=== PATIENT | female | born 1970 | race Caucasian/White ===

== ENCOUNTER → 2016-10-11 | Outpatient (CLI) | payer OTHER ==
[~2016-10-11] MED LIST: ADVAIR 100-501 EACH INH; FLEXERIL PO; IBUPROFEN 800800 M1 PO; IBUPROFEN 800800 MG PO; METFORMIN HCL500 MG PO; MULTIVITAMINS1 EAC7 PO; NORCO 5-325 TA1 EACH PO; PHENERGAN 25 MG25 M1 PO; SENOKOT-S1 TA1 PO; WELLBUTRIN 100100 MG PO; XOPENEX0.31 MG/3 IH
== END ==
LOC: ULTRA 15:52
DX: M79.662 Pain in left lower leg (principal); M79.89 Other specified soft tissue disorders; R60.0 Localized edema

== ENCOUNTER 2018-10-13 09:25 | Inpatient (IN) | payer BC ==
[~2018-10-13] VITALS: Ht 170.2 cm; Wt 100.2 kg
--- NOTE | ~2018-10-13 | HC ---
[facility] [place] [address] CONSULTATION Name: CHASITY PACK Room #: 364-P ADM IN M.R.#: [id number] Admission: 10/13/18 ������������������ Attend Phys: Gibson Kauffman MD Discharge: ������������������ Date of : 72 Report #: [id number] THIS REPORT FOR: //name// CC: Gibsno Kauffman DATE OF SERVICE: 10/13/2018 HISTORY OF PRESENT ILLNESS: This is a 48-year-old female patient who was evaluated by me for numbness on the left side. It involves the face, left upper extremity and the left lower extremity. She woke up with it. It is a subjective feeling. She does not have any motor deficit associated with this. She never had any stroke-like symptoms before. Symptoms are mild. REVIEW OF SYSTEMS: Indicate she is a diabetic. She used to be on medication. She stopped taking her medications about 1 month ago. This is because the patient could not afford that. Her blood sugar is high in the Emergency Room and it is 239. She never had any trouble with stroke or heart issues in the past. She has a history of hysterectomy, asthma, cholecystectomy, ankle surgeries. Rest of the 14-point review of systems was noncontributory. PAST MEDICAL HISTORY: Negative for stroke or heart problems. FAMILY HISTORY: Negative for any early age stroke. SOCIAL HISTORY: She smokes. PHYSICAL EXAMINATION: NEUROLOGICAL: Indicate she is alert, responsive, able to follow simple and complex command. Cranial nerve examination 2 through 12 looks unremarkable. She has a symmetrical strength, sensation, reflexes and tone in all 4 extremities; however, she indicates her touch feels different on the left side and position sense. It takes longer to appreciate. Her reflexes and tone looks symmetrical. She has no cerebellar sign. I could not look at the patient's fundus. GENERAL: She is moderately built individual who does not have any dysmorphic features of eyes, ears and face. HEENT: Her vision and hearing looks adequate. SKIN: There is no edema, cyanosis or jaundice. CARDIAC: Examination appears unremarkable. No respiratory difficulty was noticed. VITAL SIGNS: Blood pressure is 140/73, respiration is 22, pulse is 82 and temperature is 98.7. LABORATORY DATA: Her white count is 10.0, blood sugar is high. She did have a CT scan of the head, which was unremarkable. 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 We will see what the MRI shows. Until MRI and MRA show anything overriding, she mainly needs the control of her vascular risk factors. She needs to stop smoking. She needs to be on diabetic medication and maybe Executive Assistant To General Counsel can help her get the medication somehow. She needs to lose weight and live a healthy lifestyle. All of it was discussed with the patient. She is already on aspirin and depending upon her lipid profile, she may also have to be on statin. Thank you very much for this referral and we will follow this patient along with you. ��������������������������������������������� ���������������������������������������� By: ��������������������������������������������� 1227 0511 Dennis Elliott MD /nt
[2018-10-13 09:33] VITALS: BP 147/95
[2018-10-13 10:00] LABS: ABSOLUTE NEUTROPHILS 6.9 thou/uL (1.4-8.2); BASOPHILS 0.6 % (0.0-2.0); EOSINOPHILS 1.5 % (0.0-3.0); HEMATOCRIT 39.8 % (37.0-47.0); HEMOGLOBIN 13.4 gm/dL (12.0-15.0); MCH 29.4 pg (26.0-34.0); MCHC 33.7 g/dL (28.0-37.0); MCV 87.2 fL (80.0-100.0); MONOCYTES 3.4 % (1.0-8.0); PLATELET COUNT 201 thou/uL (150-400); POLYS 67.5 % (36.0-66.0); RBC 4.56 mil/uL (4.20-5.00); RDW 13.6 % (10.5-14.5); WBC 10.2 thou/uL (4.0-11.0)
[2018-10-13 10:10] LABS: ANION GAP 11 mmol/L (7-16); BUN 16 mg/dL (7-18); CALCIUM 9.1 mg/dL (8.5-10.1); CHLORIDE 103 mmol/L (98-107); CO2 24 mmol/L (21-32); CREATININE 0.7 mg/dL (0.6-1.0); GLUCOSE 239 mg/dL (74-106); POTASSIUM 4.1 mmol/L (3.5-5.1); SODIUM 138 mmol/L (136-145)
[2018-10-13 10:13] LABS: APTT 28.9 Seconds (24.5-32.8)
[2018-10-13 10:20] LABS: ALBUMIN 3.6 g/dL (3.4-5.0); SGOT 30 U/L (15-37); SGPT 66 U/L (30-65); TOTAL BILIRUBIN 0.3 mg/dL (<0.1-1.0); TOTAL PROTEIN 7.4 g/dL (6.4-8.2); TROPONIN-I <0.06 ng/mL (<0.06)
[2018-10-13 13:55] VITALS: BP 130/79
--- NOTE | 2018-10-13 13:55 | 2DMMODE ---
[facility] [place] [address] 2 D/M-MODE ECHOCARDIOGRAM Name: SIRENACHASITY BARRAGAN Room #: 170-17 ADM IN M.R.#: [id number] ������������� Admission: 10/13/18 ������������� Attend Phys: Gibson Kauffman, Discharge: ��� ������������� ��� Date of : 72 Date of Service: 10/13/18 1354 �� Report #: [id number] �������� ��������������������������������������������[id number] THIS REPORT FOR: //name// ADDENDUM APPROVED REPORT Study performed: 10/13/2018 13:07:19 EXAM: Comprehensive 2D, Doppler, and color-flow Echocardiogram Patient Location: Echo lab Room #: ER-17 Status: routine BSA: 2.11 HR: 62 bpm BP: 140/73 mmHg Rhythm: NSR Other Information Study Quality: Excellent Indications TIA. HX: DM, tob abuse. Echo Enhancing Agent Indication: Rule out Shunt Agent(s) / Amount(s) Used: Agitated Saline 6 cc 2D Dimensions RVDd: 34.55 mm IVSd: 10.59 (7-11mm) LVOT Diam: 20.75 (18-24mm) LVDd: 50.31 mm PWd: 10.95 (7-11mm) Ascending Ao: 31.36 (22-36mm) LVDs: 32.60 (25-40mm) Aortic Root: 34.12 mm Volumes Left Atrial Volume (Systole) Single Plane 4CH: 43.36 mL Single Plane 2CH: 42.45 mL LA ESV Index: 23.00 mL/m2 Aortic Valve AoV Peak Christian.: 1.48 m/s AO Peak Gr.: 8.79 mmHg LVOT Max P.04 mmHg LVOT Max V: 1.12 m/s TK Vmax: 2.56 cm2 [facility] [place] [address] 2 D/M-MODE ECHOCARDIOGRAM Name: CHASITY PACK Room #: 170- ADM IN .R.#: [id number] ������������� Admission: 10/13/18 ������������� Attend Phys: Gibson Kauffman, Discharge: ��� ������������� ��� Date of : 72 Date of Service: 10/13/18 1354 �� Report #: [id number] �������� ��������������������������������������������[id number] Mitral Valve E/A Ratio: 1.2 MV Decel. Time: 217.92 ms MV E Max Christian.: 0.86 m/s MV A Christian.: 0.70 m/s MV PHT: 63.20 ms IVRT: 106.11 ms Pulmonary Valve PV Peak Christian.: 0.79 m/s PV Peak Gr.: 2.51 mmHg Pulmonary Vein P Vein S: 0.59 m/s P Vein A: 0.26 m/s P Vein D: 0.43 m/s P Vein A Dur.: 106.1 msec P Vein S/D Ratio: 1.37 Tricuspid Valve TR Peak Christian.: 1.74 m/s RAP Estimate: 5.00 mmHg TR Peak Gr.: 12.13 mmHg PA Pressure: 17.00 mmHg Left Ventricle The left ventricle is normal size. There is normal LV segmental wall motion. There is normal left ventricular wall thickness. Left ventricular systolic function is normal. LVEF is 60-65%. The left ventricular diastolic function is normal. Right Ventricle The right ventricle is normal size. The right ventricular systolic function is normal. Atria The left atrium size is normal. No shunting noted by contrast bubble injection. The right atrium size is normal. Aortic Valve The aortic valve is normal in structure. No aortic regurgitation is present. There is no aortic valvular stenosis. Mitral Valve The mitral valve is normal in structure. There is no mitral valve regurgitation noted. No evidence of mitral valve stenosis. Tricuspid Valve The tricuspid valve is normal in structure. Trace tricuspid regurgitation. Estimated PAP is 17[place]. [place] [address] 2 D/M-MODE ECHOCARDIOGRAM Name: CHASITY PACK Room #: [address] IN [facility].#: [id number] ������������� Admission: 10/13/18 ������������� Attend Phys: Gibson Kauffman, Discharge: ��� ������������� ��� Date of : 72 Date of Service: 10/13/18 1354 �� Report #: [id number] �������� ��������������������������������������������[id number] Pulmonic Valve The pulmonary valve is normal in structure. Mild pulmonic regurgitation. Great Vessels The aortic root is normal in size. The ascending aorta is normal in size. IVC is normal in size and collapses >50% with inspiration. Pericardium There is no pericardial effusion. <Conclusion> The left ventricle is normal size. LVEF is 60-65%. The aortic valve is normal in structure. The mitral valve is normal in structure. The tricuspid valve is normal in structure. Trace tricuspid regurgitation. Estimated PAP is 17mmHg. The pulmonary valve is normal in structure. Mild pulmonic regurgitation. There is no pericardial effusion. No shunting noted by contrast bubble injection. ��������������������������������������������� <ELECTRONICALLY SIGNED> ���������������������������������������� By: Tim Grant MD ��������������������������������������������� 10/13/18 1354 1354 1354 Tim Grant MD /INF
[2018-10-13 14:35] VITALS: BP 146/95
[2018-10-13 15:05] VITALS: BP 145/97
--- NOTE | 2018-10-13 16:35 | NUR ---
PATIENT ADMITTED TO ROOM AT THIS TIME. SHE IS ALERT ORIENTED X4. DOES NOT SEEM TO BE IN PAIN AT THIS TIME. NOTED TO BE CRYING AND WHEN INQUIRE TO WHAT IS THE MATTER SHE STATED " I AM OK. NOTHING IS WRONG". ADMISSION ASSESSMENT COMPLETED. WILL CONT WITH PLAN OF CARE
--- NOTE | 2018-10-13 18:05 | EKG ---
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: LETICIA : 1970 Requested By: Pancho Dominguez Order Number: [id number] MD: Saul Ruiz Measurements Intervals [place] Rate: 78 P: 21 VA: 233 QRS: 20 QRSD: 105 T: 3 QT: 392 QTc: 447 Interpretive Statements Sinus rhythm Prolonged VA interval Compared to ECG 05/03/2014 12:17:28 First degree AV block now present Myocardial infarct finding no longer present Electronically Signed On 10-13-2018 18:05:14 CDT by Saul Ruiz [email or web address] ��������������������������������������������� <ELECTRONICALLY SIGNED> ���������������������������������������� By: Saul Ruiz MD ��������������������������������������������� 10/13/18 1805 1015 1015 Saul Ruiz MD /ZBIGNIEW
[2018-10-13] MEDS ORDERED: ZOLOFT100 MG PO (18:20)
[2018-10-13] MEDS ORDERED: METFORMIN HCL500 MG PO (18:20)
[2018-10-13] MEDS ORDERED: TRULICITY0.75 MG/0. SUBQ (18:29)
[2018-10-13 19:52] VITALS: BP 139/79
[2018-10-13 23:53] VITALS: BP 116/66
[2018-10-14 03:38] VITALS: BP 137/80
--- NOTE | 2018-10-14 06:42 | NUR ---
ASSUMED PT CARE AROUND 1900. A&OX4. C/O HEADACHE. IBUPROFEN GIVEN FOR PAIN. PT SLEPT MOST OF THE NIGHT. RESP EVEN AND UNLABORED. STILL C/O LEFT SIDE TINGLING, BUT NO WEAKNESS TO LEFT SIDE. PROGRESSING SLOWLY TOWARD POC GOALS. WILL CONTINUE TO MONITOR FURTHER.
[2018-10-14 07:35] VITALS: BP 149/85
[2018-10-14] MEDS ORDERED: METFORMIN HCL500 MG PO ×2 (08:00→08:01)
[2018-10-14] MEDS ORDERED: WELLBUTRIN 100100 MG PO (08:01)
[2018-10-14] MEDS ORDERED: SIMVASTATIN40 MG PO (08:01)
[2018-10-14 08:07] VITALS: BP 137/80
[2018-10-14 09:47] VITALS: BP 137/80
--- NOTE | 2018-10-14 09:48 | NUR ---
PT DISCHARGED AT THIS TIME. DISCHARGE PAPERS GONE OVER SIGNED AND COPY IN CHART. IV ACSESS DC. TELE MONITOR REMOVED. ALL BELONGINGS PACKED AND SENT WITH PATIENT.
== END 2018-10-14 09:50 | disposition home or self-care (01) | DRG 93 ==
LOC: ER 09:25 → EROBS 12:08 → 3W 14:38 → ENTRNSPT 10-14 09:25 → EDTRNSPTSTS 10-14 09:28 → 3W 10-14 09:50
PROVIDERS: Emergency Medicine; ADMIT Family Medicine
DX: R20.0 Anesthesia of skin (principal); E11.9 Type 2 diabetes mellitus without complications; E78.5 Hyperlipidemia, unspecified; J45.909 Unspecified asthma, uncomplicated; F17.210 Nicotine dependence, cigarettes, uncomplicated; Z79.84 Long term (current) use of oral hypoglycemic drugs; Z90.49 Acquired absence of other specified parts of digestive tract; Z90.710 Acquired absence of both cervix and uterus; Z88.5 Allergy status to narcotic agent; Z91.041 Radiographic dye allergy status
CPT/HCPCS: 10879